=== PATIENT | female | born 1985 | race Caucasian/White ===

== ENCOUNTER 2017-10-05 14:30 | Inpatient (IN) | payer SELFPAY ==
[2017-10-05] MEDS ORDERED: FENTANYL CITR 100 MCG/2 ML ONE (15:38)
[2017-10-05] MEDS ORDERED: ONDANSETRON 4 MG/2 ML VIAL ONE (15:38)
[2017-10-05 15:47] LABS: Absolute Lymphocytes (CBC) 1.6 K/uL (0.7-4.9); Absolute Monocytes 0.6 K/uL (0.1-1.3); Absolute Neutrophil 14.8 K/uL (1.8-8.0); Basophils % 0.3 % (0-1.3); Eosinophils % 0.3 % (0-4.4); Hematocrit 34.4 % (36.0-45.0); Lymphocytes % 9.2 % (15.3-44.8); MCV 92.4 fL (80-100); MPV 8.9 fL (7.6-11.3); Monocytes % 3.6 % (3.3-12.3); RBC Red Blood Cell Count 3.72 M/uL (3.86-4.86)
[2017-10-05 16:31] LABS: Platelet Estimate ADEQ; Urine White Blood Cell Casts OK
[2017-10-05 16:32] LABS: Blood Morphology Comment NOT SEEN (NOT SEEN)
[2017-10-05 16:33] LABS: Albumin 2.9 g/dL (3.4-5.0); Bilirubin Direct 0.2 mg/dL (0-0.2); Bilirubin Total 0.6 mg/dL (0.2-1.0); Potassium 3.5 mmol/L (3.5-5.1); Protein, Total 6.8 g/dL (6.4-8.2)
[2017-10-05] MEDS ORDERED: NA CHLORIDE 0.9% 1,000 ML ONE ×2 (16:46→18:27)
[2017-10-05] MEDS ORDERED: Magnesium Sulfate 2gm IVPB 4 G/100 ML BAG IV ONE (16:57)
[2017-10-05] MEDS ORDERED: LIDOCAINE 1% W/EPI 1:100,000 MDV 50 ML VIAL ONE (17:06)
[2017-10-05 17:26] LABS: Urine Blood 2+ (NEG); Urine Glucose NEGATIVE (NEG); Urine Protein 2+ (NEG); Urine pH 5.5 (5.0-7.0)
[2017-10-05 17:27] LABS: Urine Appearance CLEAR; Urine Bilirubin NEGATIVE (NEG); Urine Blood 2+ (NEG); Urine Color DK YELLOW; Urine Glucose NEGATIVE (NEG); Urine Protein 2+ (NEG); Urine Specific Gravity 1.025 (1.005-1.030); Urine Urobilinogen 0.2 mg/dL (0.2-1.0); Urine pH 5.5 (5.0-7.0)
[2017-10-05 17:28] LABS: Urine Microscopic Reflex ORDER UMIC
[2017-10-05] MEDS ORDERED: LABETALOL 20 MG/4ML SYRINGE IV ONE (17:31)
[2017-10-05] MEDS ORDERED: Magnesium Sulfate 2gm IVPB 2 G/50 ML BAG IV ONE (17:32)
[2017-10-05 17:35] LABS: Urine Bacteria <20 /HPF (<20); Urine Culture Reflex Order NOT NEEDED; Urine Mucus 1+ /HPF (NONE SEEN)
[2017-10-05 17:41] LABS: Barbiturates NEGATIVE (NEGATIVE); Benzodiazepines NEGATIVE (NEGATIVE); Cocaine NEGATIVE (NEGATIVE); METHAMPHETAM NEGATIVE (NEGATIVE); Methadone NEGATIVE (NEGATIVE); Opiates NEGATIVE (NEGATIVE); Phencyclidine NEGATIVE (NEGATIVE); THC Cannibis NEGATIVE (NEGATIVE)
--- NOTE | 2017-10-05 17:45 | ER ---
Nurse's Notes [facility] Name: Donna Carlos Age: 31 yrs Sex: Female : 1985 Arrival Date: 10/05/2017 Time: 14:34 Bed 26 Private MD: None, None Diagnosis: Vaginal Delivery Presentation: 10/05 15:11 Presenting complaint: Patient states: Low back pain 10/10 and vaginal bleeding x 2 hb hours. Transition of care: patient was not received from another setting of care. Onset of symptoms was October 05, 2017. Risk Assessment: Do you want to hurt yourself or someone else? Patient reports no desire to harm self or others. Care prior to arrival: None. 15:11 Method Of Arrival: Ambulatory hb 15:11 Acuity: ALICIA 3 hb 15:42 Initial Sepsis Screen: Does the patient meet any 2 criteria? No. Patient's initial rv sepsis screen is negative. Does the patient have a suspected source of infection? No. Patient's initial sepsis screen is negative. Triage Assessment: 15:12 General: Appears in no apparent distress. uncomfortable, Behavior is calm, cooperative. hb Neuro: Level of Consciousness is awake, alert, obeys commands, Oriented to person, place, time, situation. Cardiovascular: Capillary refill < 3 seconds Patient's skin is warm and dry. Respiratory: Airway is patent Trachea midline Respiratory effort is even, unlabored, Respiratory pattern is regular, symmetrical. 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 - Social history:: Smoking status: Patient/guardian denies using tobacco. - Ebola Screening: : No symptoms or risks identified at this time. Screenin:12 Abuse screen: Denies threats or abuse. Denies injuries from another. Nutritional hb screening: No deficits noted. Tuberculosis screening: No symptoms or risk factors identified. Fall Risk None identified. Assessment: 15:20 General: Appears in no apparent distress. uncomfortable, Behavior is cooperative, rv crying. 15:20 Pain: Complains of pain in abdomen Pain currently is 10 out of 10 on a pain scale. rv Neuro: Level of Consciousness is awake, alert, obeys commands, Oriented to person, place, time, situation. Cardiovascular: Capillary refill < 3 seconds. Respiratory: Airway is compromised. GI: Abdomen is round non-distended. : Reports cramping, vaginal bleeding that is heavy flow. 15:40 Reassessment: Reassessment: ASKED PATIENT TO PROVIDE URINE SAMPLE BUT PATIENT UNABLE TO rv GIVE AFTER GOING TO THE RESTROOM. 15:42 EENT: No signs and/or symptoms were reported regarding the EENT system. Derm: Skin is rv intact. 16:32 Reassessment: US at bedside. hb 16:35 Reassessment: Ning العراقي and Dr. Alexandre at bedside for eminent delivery. hb 16:51 Reassessment: baby to L\T\D with MILLI Coreas. hb 16:54 Reassessment: Dr. Jha at bedside. Reassessment:. hb 17:06 Reassessment: labs collected, placenta sent to outside lab with MILLI Pearce. hb 17:45 Reassessment: Pt assisted with vaginal clean up after delivery and given pad and sv underwear to put on. Family at the bedside. 17:51 Reassessment: BABY GIRL OUT AT 1645 10/05/[address] ALEXANDRE WITH [facility]. CARE rv DONE BY D NURSE. BABY TRANSPORTED TO [facility]. DR JHA CAME AND DELIVERED THE PLACENTA AT 1657 10/05/17. 18:21 Reassessment: Pt transported to L\T\D with Ramses MORLEY and family. hb Vital Signs: 15:11 BP 172 / 94; Pulse 73; Resp 16; Temp 98; Pulse Ox 100% on R/A; Pain 10/10; hb 16:20 BP 177 / 83; Pulse 68; Pulse Ox 98% on R/A; rv 16:30 BP 173 / 137; Pulse 97; Pulse Ox 99% ; rv 16:50 BP 161 / 108; Pulse 88; Pulse Ox 98% on R/A; rv 17:00 BP 155 / 98; Pulse 91; Pulse Ox 100% on R/A; rv 17:14 BP 170 / 102; Pulse 100; Pulse Ox 100% on R/A; rv 17:20 BP 161 / 94; Pulse 103; Pulse Ox 100% on R/A; rv 17:30 BP 142 / 88; Pulse 92; Pulse Ox 97% on R/A; rv 17:47 BP 122 / 99; Pulse 88; Pulse Ox 97% on R/A; rv 18:00 BP 137 / 95; Pulse 89; Pulse Ox 99% on R/A; rv ED Course: 14:34 Patient arrived in ED. sb2 14:35 None, None is Private Physician. sb2 15:07 [facility] jmm 15:07 Chace Alexandre MD is Attending Physician. jmm 15:11 Triage completed. hb 15:11 Arm band placed on right wrist. hb 15:30 Inserted saline lock: 20 gauge in right antecubital area, using aseptic technique. rv 15:42 Patient has correct armband on for positive identification. Placed in gown. Bed in low rv position. Call light in reach. Side rails up X 1. Adult w/ patient. Pulse ox on. NIBP on. 16:27 Ultrasound completed. Other: pt began giving during exam, ning العراقي notified. sg3 16:27 OB Limited In Process Unspecified. sg3 17:03 Assist provider with laceration repair on meatus, vaginal opening and perineum using geeta sutures. Set up tray. Performed by Yoli Jha MD Patient tolerated well. 17:05 Straight cath inserted, using sterile technique, 16 Fr. Specimen obtained. done by Dr geeta Jha Returned clear yellow urine. Patient tolerated well. 17:43 Yoli Jha MD is Hospitalizing Provider. jmm 17:51 LABOR AND DELIVERY OF THE BABY. rv 18:45 Patient admitted, IV remains in place. intact. rv Administered Medications: 15:39 Drug: fentaNYL (PF) 50 mcg Route: IVP; Site: right antecubital; rv 18:16 Follow up: Response: No adverse reaction; Pain is unchanged, physician notified rv 15:39 Drug: Zofran 4 mg Route: IVP; Site: right antecubital; rv 16:33 Follow up: Response: No adverse reaction rv 16:33 Follow up: Response: No adverse reaction rv 17:10 Drug: Magnesium Sulfate 4 grams Route: IVPB; Infused Over: 20 mins; Site: right rv antecubital; 18:16 Follow up: Response: No adverse reaction; IV Status: Completed infusion rv 17:38 Drug: Labetalol 20 mg Route: IVP; Infused Over: 2 mins; Site: right antecubital; sv 18:08 Follow up: Response: No adverse reaction rv Outcome: 17:44 Decision to Hospitalize by Provider. svetlana 18:45 Admitted to L \T\ D, accompanied by nurse, accompanied by tech, via stretcher, room 274, rv with chart, Report called to TREY MORLEY 18:45 Condition: stable 18:45 Instructed on the need for admit. 18:46 Patient left the ED. hb Signatures: Dispatcher [employer] Landy Guzmán, RN RN Ning Hoffman PA PA jmm Baxter, Heather, RN RN Ramya Cabral sg3 Radha Trejo sb2 Александр Espinal, RN RN rv Corrections: (The following items were deleted from the chart) 10/06 14:48 10/05 17:46 Ultrasound completed. Other: pt began giving during exam, ning العراقي sg3 notified. sg3 10/06 14:48 10/05 17:51 In radiology for OB Limited. LYDIA sg3
--- NOTE | 2017-10-05 17:45 | EDPHYS ---
Physician Documentation [facility] Name: Donna Carlos Age: 31 yrs Sex: Female : 1985 Arrival Date: 10/05/2017 Time: 14:34 Bed 26 Private MD: None, None ED Physician Chace Alexandre HPI: 10/05 15:27 This 31 yrs old Female presents to ER via Ambulatory with complaints of jmm Vaginal Bleeding, Abdominal Pain. 15:27 The patient presents with pelvic pain, vaginal bleeding that is. Onset: The jmm symptoms/episode began/occurred acutely, just prior to arrival. Associated signs and symptoms: Pertinent positives: cramping, vaginal bleeding, Pertinent negatives: fever. This is a 31 year old female with no chronic medical conditions that presents to the ED with heavy vaginal bleeding and pelvic cramping. Patient denies vomiting, diarrhea, fever, dysuria, or discharge. . 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 - Social history:: Smoking status: Patient/guardian denies using tobacco. - Ebola Screening: : No symptoms or risks identified at this time. ROS: 15:27 Constitutional: Negative for fever, chills, and weight loss, Cardiovascular: Negative jmm for chest pain, palpitations, and edema, Respiratory: Negative for shortness of breath, cough, wheezing, and pleuritic chest pain, Abdomen/GI: Negative for abdominal pain, nausea, vomiting, diarrhea, and constipation. 15:27 : Positive for vaginal bleeding. 15:27 All other systems are negative. Exam: 15:27 Head/Face: atraumatic. Chest/axilla: Normal chest wall appearance and motion. jmm Cardiovascular: Regular rate and rhythm. No edema appreciated Respiratory: Normal respirations, no respiratory distress appreciated Abdomen/GI: Non distended, soft 15:27 Constitutional: The patient appears in no acute distress, alert, awake. 15:27 Abdomen/GI: Inspection: abdomen appears normal, Bowel sounds: normal, Palpation: abdomen is soft and non-tender. 15:27 Musculoskeletal/extremity: ROM: intact in all extremities. 15:27 Skin: Appearance: Color: normal in color. 15:27 Neuro: Orientation: is normal, Mentation: is normal, Memory: is normal. 15:27 Psych: Behavior/mood is pleasant, cooperative. Vital Signs: 15:11 BP 172 / 94; Pulse 73; Resp 16; Temp 98; Pulse Ox 100% on R/A; Pain 10/10; hb 16:20 BP 177 / 83; Pulse 68; Pulse Ox 98% on R/A; rv 16:30 BP 173 / 137; Pulse 97; Pulse Ox 99% ; rv 16:50 BP 161 / 108; Pulse 88; Pulse Ox 98% on R/A; rv 17:00 BP 155 / 98; Pulse 91; Pulse Ox 100% on R/A; rv 17:14 BP 170 / 102; Pulse 100; Pulse Ox 100% on R/A; rv 17:20 BP 161 / 94; Pulse 103; Pulse Ox 100% on R/A; rv 17:30 BP 142 / 88; Pulse 92; Pulse Ox 97% on R/A; rv 17:47 BP 122 / 99; Pulse 88; Pulse Ox 97% on R/A; rv 18:00 BP 137 / 95; Pulse 89; Pulse Ox 99% on R/A; rv Procedures: 17:39 Delivery of : Patient placed in dorsal lithotomy position. Imminent delivery was rn expected. position was vertex, Station is Presenting part visible on exam. Meconium was a mild amount. Bleeding was minimal. Nuchal cord was not present. Baby delivered at 16:45 Baby delivered by myself. Cord cut and clamped. Mother doing well. in warmer. Infant to NICU. Suctioned infant's naso/oropharynx with bulb syringe. score at 1 minute was 9. score at 10 minutes was 9. MDM: 15:25 Patient medically screened. [facility] 16:55 Data reviewed: vital signs, nurses notes. ED course: While in the ED the patient had a jm spontaneous vaginal delivery. Dr. Alexandre and L \T\ D nurses present. Dr. Olmstead was notified and visited patient after delivery. Dr. Burns notified. . 17:41 ED course: Called to bedside for imminent baby delivery, unknown dates, patient reports rn mild periods over last 3 months, no known , reports last normal period was approx 3 months ago, presenting part is vertex, hair visible, having 2 min contractions, prepared sterile drapes and baby delivered by myself, Dr. Alexandre, baby with very small amount of meconium, suctioned prior to first cry, pinked up quickly, dried, warmed, and transferred to nursery, mild tachypnea and O2 93%, transfer organized to [facility]. NO intubation required. Dr. Olmstead arrived shortly after delivery and delivered placenta/sutured mother. Infant passed onto Dr. Burns for completion of transfer. . 10/05 15:25 Order name: Amylase, Serum; Complete Time: 17:25 [facility] 10/05 15:25 Order name: Basic Metabolic Panel; Complete Time: 17:25 [facility] 10/05 15:25 Order name: CBC with Diff; Complete Time: 17:25 [facility] 10/05 15:25 Order name: Creatinine for Radiology; Complete Time: 16:06 [facility] 10/05 15:25 Order name: Hepatic Function; Complete Time: 17:25 [facility] 10/05 15:25 Order name: Lipase; Complete Time: 17:25 [facility] 10/05 15:25 Order name: Urine Microscopic Only [facility] 10/05 15:26 Order name: Abo/rh Typing; Complete Time: 17:25 [facility] 10/05 15:26 Order name: Quantitative Hcg; Complete Time: 17:25 [facility] 10/05 16:26 Order name: ABO/RH no charge; Complete Time: 17:25 [facility] 10/05 16:32 Order name: CBC Smear Scan; Complete Time: 17:25 [facility] 10/05 17:10 Order name: T\T\S 10/05 17:10 Order name: Uric Acid; Complete Time: 18:18 10/05 17:10 Order name: Comprehensive Metabolic Panel; Complete Time: 18:18 10/05 17:10 Order name: Rpr 10/05 17:10 Order name: Hepatitis B Surface Antibody [facility] 10/05 17:10 Order name: HIV (1 [facility] 10/05 17:10 Order name: Rubella Screen [facility] 10/05 17:14 Order name: Urinalysis; Complete Time: 18:18 10/05 17:14 Order name: Urine Drug Screen; Complete Time: 18:18 10/05 17:23 Order name: Urine Dipstick--Ancillary (enter results); Complete Time: 17:26 10/05 17:23 Order name: Urine --Ancillary (enter results); Complete Time: 17:26 10/05 17:26 Order name: Cord blood workup [facility] 10/05 17:29 Order name: Urine Microscopic Only; Complete Time: 18:18 [facility] 10/05 17:50 Order name: OB Limited; Complete Time: 18:18 [facility] 10/05 15:25 Order name: Urine Test (obtain specimen); Complete Time: 18:16 [facility] 15:25 Order name: IV Saline Lock; Complete Time: 15:39 [facility] 10/05 15:25 Order name: Labs collected and sent; Complete Time: 15:39 [facility] 15:25 Order name: Urine Dipstick-Ancillary (obtain specimen); Complete Time: 18:16 [facility] Administered Medications: 15:39 Drug: fentaNYL (PF) 50 mcg Route: IVP; Site: right antecubital; rv 18:16 Follow up: Response: No adverse reaction; Pain is unchanged, physician notified rv 15:39 Drug: Zofran 4 mg Route: IVP; Site: right antecubital; rv 16:33 Follow up: Response: No adverse reaction rv 16:33 Follow up: Response: No adverse reaction rv 17:10 Drug: Magnesium Sulfate 4 grams Route: IVPB; Infused Over: 20 mins; Site: right rv antecubital; 18:16 Follow up: Response: No adverse reaction; IV Status: Completed infusion rv 17:38 Drug: Labetalol 20 mg Route: IVP; Infused Over: 2 mins; Site: right antecubital; sv 18:08 Follow up: Response: No adverse reaction rv Disposition: 19:02 Co-signature as Attending Physician, Chace Alexandre MD. rn Disposition: 10/05/17 17:44 Hospitalization ordered by Yoli Olmstead for Observation. Preliminary diagnosis is Vaginal Delivery. - [facility]. - Status is Observation. hb - Condition is Stable. - Problem is new. - Symptoms are unchanged. UTI on Admission? No Signatures: Dispatcher [employer] [facility] Landy Mills RN RN sv Mickail, Joel, PA PA Chace Clemons MD MD rn Baxter Annamarie, RN RN Harriet Gloria Александр Espinal, RN RN rv Corrections: (The following items were deleted from the chart) 17:50 15:27 Pelvis Complete+US.RAD.BRZ ordered. EDMS EDMS 18:20 17:44 Hospitalization Ordered by Yoli Olmstead MD for Observation. Preliminary diagnosis eb is Vaginal Delivery. Bed requested for [facility]. Status is Observation. Condition is Stable. Problem is new. Symptoms are unchanged. UTI on Admission? No. jmm 18:46 18:20 10/05/2017 17:44 Hospitalization Ordered by Yoli Olmstead MD for Observation. Preliminary diagnosis is Vaginal Delivery. Bed requested for [facility]. Status is Observation. Condition is Stable. Problem is new. Symptoms are unchanged. UTI on Admission? No. eb
[2017-10-05 17:51] LABS: RPR Titer ND
--- NOTE | 2017-10-05 18:00 | P.HP ---
Certification for Inpatient Patient admitted to: Inpatient With expected LOS: >2 Midnights Patient will require the following post-hospital care: None Practitioner: I am a practitioner with admitting privileges, knowledge of patient current condition, hospital course, and medical plan of care. Services: Services provided to patient in accordance with Admission requirements found in Title 42 Section 412.3 of the Code of Federal Regulations Patient History Date of Service: 10/05/17 Reason for admission: Presented to ER with abdominal pain History of Present Illness: 31 y.o. G1 who presented to ED today due to intense pelvic pain. She states the pain started at round 10:30 this morning but increased around noon until it became unbearable. She also started having vaginal bleeding and low back pain. When she presented to ED, it continued to worsen. US was done on admission showing an IUP. 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 She denies even suspecting as she also denies any signs or symptoms and reports weight loss. She was not taking control. She denies prescription medications, but took NSAIDs regularly. She has a h/o asthma and reports moderate intake of alcohol (4-5 days/week) and denies tobacco or drug use. Allergies aspirin Adverse Reaction (Verified 10/05/17 18:03) Hives codeine Adverse Reaction (Verified 10/05/17 18:03) Hives Home medications list reviewed: Yes - Past Medical/Surgical History -: Asthma -: Denies - Social History Smoking Status: Never smoker Alcohol use: Yes CD- Drugs: No Caffeine use: Yes Place of Residence: Home Review of Systems 10-point ROS is otherwise unremarkable Physical Examination - Physical Exam General: Alert, Moderate distress HEENT: Atraumatic, Normocephalic Respiratory: Other (Rapid breathing but not labored) Cardiovascular: Normal pulses Musculoskeletal: No swelling, No tenderness Integumentary: No rashes, No breakdown Neurological: Normal speech, Normal strength at 5/5 x4 extr - Studies Laboratory Data (last 24 hrs) 10/05/17 15:20: Creatinine 0.80 10/05/17 15:20: WBC 17.1 H, Hgb 11.9 L, Hct 34.4 L, Plt Count 276 10/05/17 15:20: Sodium 140, Potassium 3.5, BUN 12, Creatinine 0.80, Glucose 100 , Total Bilirubin 0.6, AST 23, ALT 29, Alkaline Phosphatase 134 H, Amylase 26, Lipase 124 Female Exam - Female Pelvic Vagina: Normal, Other (B/L labial tears) Uterus: Non-tender, Soft Assessment and Plan - Problems (Diagnosis) (1) with gestation of unknown duration Current Visit: Yes Status: Resolved Plan: Delivered in ER by ED attending. Peds called in and NICU transport team en route. Approximately 30-32 week per ginner helper assessment. Ob labs and HIV ordered. (2) Pre-eclampsia affecting childbirth Current Visit: Yes Status: Acute Plan: Severe range blood pressures (170s/120s) noted on my arrival. Pt denies MORAN, changes in vision, CP, RUQ pain, or difficulty breathing. HELLP labs ordered and pending. Four gram magnesium bolus given and continuous infusion running at 2g/hr. Severe range blood pressure treated with 20 mg IV labetalol x1 with appropriate response, now in mild range. Plan to continue magnesium sulfate for seizure prophylaxis for 12-24 h and follow serial labs. Will insert ramirez catheter. Allow ice chips and popsicles only until medication is discontinued. Pt aware and is agreeable. Bed rest during therapy. (3) Asthma Current Visit: Yes Status: Acute Plan: Well controlled per patient. Albuteol inh prn, to have at bedside. - Advance Directives Does patient have a Living Will: No Does patient have a Durable POA for Healthcare: No
[2017-10-05 18:16] LABS: Bilirubin Total 0.5 mg/dL (0.2-1.0); Potassium 3.9 mmol/L (3.5-5.1); Uric Acid 8.2 mg/dL (2.6-6.0)
[2017-10-05] MEDS ORDERED: METOCLOPRAMIDE 10 MG/2mL INJ IV PRN (18:16)
[2017-10-05] MEDS ORDERED: ONDANSETRON 4 MG/2 ML VIAL IV PRN (18:16)
[2017-10-05] MEDS ORDERED: ALBUTEROL INHALER 60 PUFF/8 GM IH PRN (18:16)
--- NOTE | 2017-10-05 18:16 | RAD REPORT ---
EXAM DESCRIPTION: US - OB Limited - 10/05/2017 5:51 pm CLINICAL HISTORY: pelvic pain, vaginal bleeding Evaluate heart rate COMPARISON: None FINDINGS: A very limited study was requested to evaluate heart rate only. heart rate 138 BPM was seen by the medical apparatus model maker.
[2017-10-05] MEDS ORDERED: MAGNESIUM SULF/STERILE WATER 1,000 ML IV SCH (19:00)
[2017-10-05 19:10] VITALS: BMI 34.0
[2017-10-05 22:39] LABS: RPR (Rapid Plasma Reagin) NON-REACT (NON-REACT)
[2017-10-06 00:38] LABS: Hematocrit 27.8 % (36.0-45.0); MCV 92.7 fL (80-100); MPV 8.5 fL (7.6-11.3)
[2017-10-06 00:57] LABS: ALT/SGPT 21 U/L (12-78); AST/SGOT 19 U/L (15-37); Albumin 2.4 g/dL (3.4-5.0); Alkaline Phosphatase 108 U/L (45-117); BUN Blood Urea Nitrogen 9 mg/dL (7-18); Bicarbonate 21 mmol/L (21-32); Bilirubin Total 0.5 mg/dL (0.2-1.0); Glucose Level 86 mg/dL (74-106); Protein, Total 5.8 g/dL (6.4-8.2); Sodium Level 139 mmol/L (136-145)
[2017-10-06] MEDS ORDERED: NA CHLORIDE 0.9% 1,000 ML ONE ×2 (04:42→18:16)
[2017-10-06 07:12] LABS: MCH 31.7 pg (27.0-35.0); MCV 92.3 fL (80-100); MPV 8.7 fL (7.6-11.3); RBC Red Blood Cell Count 2.92 M/uL (3.86-4.86)
[2017-10-06 07:18] VITALS: O2SAT 100
[2017-10-06 07:22] LABS: ALT/SGPT 21 U/L (12-78); AST/SGOT 19 U/L (15-37); Albumin 2.3 g/dL (3.4-5.0); Alkaline Phosphatase 97 U/L (45-117); BUN Blood Urea Nitrogen 7 mg/dL (7-18); Bicarbonate 23 mmol/L (21-32); Bilirubin Total 0.5 mg/dL (0.2-1.0); Glucose Level 82 mg/dL (74-106); Potassium 4.1 mmol/L (3.5-5.1); Protein, Total 5.5 g/dL (6.4-8.2); Sodium Level 137 mmol/L (136-145)
[2017-10-06] MEDS ORDERED: TRAMADOL HCL 50 MG TAB PO PRN (10:43)
--- NOTE | 2017-10-06 10:45 | P.OP ---
Preoperative diagnosis: IUP of unknown gestational age Postoperative diagnosis: Same with precipitous vaginal delivery Primary procedure: Delivery of placenta Secondary procedure: Repair of vaginal lacerations Anesthesia: Local with epinephrine Estimated blood loss: 200 cc Specimen: Placenta Findings: See operative report Operative Technique: PREOPERATIVE DIAGNOSIS:Precipitous , undelivered placenta PROCEDURE PERFORMED:Delivery of placenta, repairs of vaginal laceration HISTORY OF PRESENT ILLNESS:The patient is a 31-year-old female who is a G-1, P1 with a unknown EDC as she denied knowledge of . Ob labs and HIV ordered. PROCEDURE DETAILS:The patient was admitted to ED and delivered precipitously by ED attending. I was called in to assess and for delivery of placenta. On my arrival, patient was laying on the stretcher. FOB at bedside. She was tearful, she was shaking and appeared to be anxious but was cooperative. Baby had been taken to another room for further assessment due to suspected prematurity. Placenta was still undelivered. Gentle traction was applied and the placenta delivered easily. It appeared to be intact. Examination of perineum revealed bilateral labial tears and a susan-urethral laceration on the right. 5 cc of local with epinephrine was injected. Anesthesia was confirmed. Next, 4 -0 chromic was used to repair the bilateral labial tears in a continuous running , un-locked fashion. The urethra was cleansed with Betadine and a red rubber was placed. Approximately 100 mL of clear urine noted. The Strait catheter was left in place during repair of right susan-urethra laceration which was done carefully using the same suture. Bleeding was minimal and hemostasis was achieved. The catheter was removed. Patient tolerated well the procedure well and there were no complications. Drain(s): Urinary catheter Fluids & blood products: mIVF Transferred to: Recovery Room Condition: Good
--- NOTE | 2017-10-06 10:51 | P.PN ---
Subjective Date of Service: 10/06/17 Chief Complaint: S/p Subjective: Improving (FOB is present in the room. Reports mild pain in pelvic area. Bleeding is described as normal. She is pumping. Reports baby is doing well as she was in touch with nursing at [facility] about baby status), Doing well Review of Systems 10-point ROS is otherwise unremarkable Physical Examination - Vital Signs Temperature: 97.0 F Blood Pressure: 134/70 Pulse: 83 Respirations: 18 Pulse Ox (%): 100 - Physical Exam General: Alert, In no apparent distress, Oriented x3 HEENT: Atraumatic, Normocephalic Respiratory: Clear to auscultation bilaterally Cardiovascular: Normal pulses, Regular rate/rhythm, Normal S1 S2 Gastrointestinal: No tenderness, Other (Obese, soft, uterus is firm and below umbilicus) Musculoskeletal: No swelling, No tenderness Integumentary: No rashes, No breakdown Neurological: Normal speech, Normal strength at 5/5 x4 extr - Studies Laboratory Data (last 24 hrs) 10/05/17 17:22: Sodium 141, Potassium 3.9, BUN 13, Creatinine 0.80, Glucose 117 H, Uric Acid 8.2 H, Total Bilirubin 0.5, AST 20, ALT 29, Alkaline Phosphatase 144 H 10/05/17 15:20: Creatinine 0.80 10/05/17 15:20: WBC 17.1 H, Hgb 11.9 L, Hct 34.4 L, Plt Count 276 10/05/17 15:20: Sodium 140, Potassium 3.5, BUN 12, Creatinine 0.80, Glucose 100 , Total Bilirubin 0.6, AST 23, ALT 29, Alkaline Phosphatase 134 H, Amylase 26, Lipase 124 Assessment And Plan - Current Problems (Diagnosis) (1) with gestation of unknown duration Current Visit: Yes Status: Resolved Plan: (2) Pre-eclampsia affecting childbirth Current Visit: Yes Status: Acute Plan: Blood pressures are normal to mild ranges. Pt denies MORAN, changes in vision, KARRI , chest pain. UOP is adequate the last 3 hours. Will d/c magnesium now and advance diet. Continue to observe until this evening. Pt would like to be discharged as soon as possible to see baby. However, she understands need to further monitor once magnesium is discontinued and agrees. She denies further questions. (3) Asthma Current Visit: Yes Status: Acute Plan: Well controlled. Albuteol inh prn, to have at bedside.
--- NOTE | 2017-10-06 11:17 | P.PN ---
Date of Service: 10/06/17 EKG ordered due to severe range pressures. Follow up results
--- NOTE | 2017-10-06 15:14 | EKG ---
Test Date: 2017-10-06 Test Time: 13:44:43 Labor Law Professor: AYAKA MEASUREMENT RESULTS: Intervals: Rate: 90 MN: 116 QRSD: 78 QT: 382 QTc: 467 [place]: P: 34 MN: 116 QRS: 6 T: 12 INTERPRETIVE STATEMENTS: Normal sinus rhythm Normal ECG No previous ECG available for comparison Electronically Signed On 10-06-17 15:14:17 CDT by Aden Jordan
[2017-10-06] MEDS ORDERED: Tdap (Diph,Pertuss(Acell),Tet Vac) 0.5 ML SYR IMVAC ONE ×2 (15:37→15:46)
--- NOTE | 2017-10-06 18:14 | P.PN ---
Date of Service: 10/06/17 RN called to say patient is requesting to go home so she can visit her baby. However, she is having blood tinged urine with only slight improvement since this morning. I suspect traumatic ramirez catheterization vs vaginal lacerations near urethral orifice that occurred at delivery. VB described as light. Improvement or resolution anticipated for traumatic catheter. Will resume IVF and give lasix. Monitor overnight; consult urology if no improvement.
[2017-10-06 18:34] LABS: MCH 32.5 pg (27.0-35.0); MCV 92.5 fL (80-100); MPV 8.1 fL (7.6-11.3); RBC Red Blood Cell Count 3.03 M/uL (3.86-4.86)
[2017-10-06 18:45] LABS: Potassium 3.6 mmol/L (3.5-5.1)
[2017-10-06] MEDS ORDERED: NA CHLORIDE 0.9% 500 ML IV ONE (19:00)
[2017-10-06] MEDS ORDERED: FUROSEMIDE 20 MG/ 2ML VIAL IV ONE (19:00)
[2017-10-06] MEDS: NA CHLORIDE 0.9% 1,000 ML IV SCH (23:00)
[2017-10-06] MEDS: ACETAMINOPHEN 500 MG TAB PO PRN ×2 (23:54)
[2017-10-07] MEDS: NA CHLORIDE 0.9% 1,000 ML IV SCH (07:30)
[2017-10-07 07:36] VITALS: BP 150/86; TEMP 98.1
--- NOTE | 2017-10-07 10:57 | P.DS ---
Admission Date: 10/05/17 Discharge Date: 10/07/17 Disposition: ROUTINE DISCHARGE Discharge Condition: GOOD Reason for Admission: S/p - Problems (1) with gestation of unknown duration Onset Date: 10/07/17 Current Visit: Yes Status: Resolved (2) Pre-eclampsia affecting childbirth Onset Date: 10/07/17 Current Visit: Yes Status: Acute (3) Asthma Onset Date: 10/07/17 Current Visit: Yes Status: Acute Brief History of Present Illness: 31 y.o. G1 who presented to ED today due to intense pelvic pain. She states the pain started at round 10:30 this morning but increased around noon until it became unbearable. She also started having vaginal bleeding and low back pain. When she presented to ED, it continued to worsen. US was done on admission showing an IUP. 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 She denies even suspecting as she also denies any signs or symptoms and reports weight loss. She was not taking control. She denies prescription medications, but took NSAIDs regularly. She has a h/o asthma and reports moderate intake of alcohol (4-5 days/week) and denies tobacco or drug use. Hospital Course: Pt was delivered in ED by ER attending after presenting for abdominal pain. Baby was transferred to [facility] for prematurity and no care. She was treated for severe preeclampsia with magnesium sulfate and was observed for BPs and development of hematuria. She denies denies pain and urine is merchandise examiner in color now improved from dark red to teresa today. Vitals are stable in mild ranges, she is afebrile and H/H is improved. She would like to be discharged to go see infant. She is pumping. Will d/c home today Vital Signs/Physical Exam: Temp Pulse Resp BP Pulse Ox 98.1 F 76 18 150/86 H 100 10/07/17 07:27 10/07/17 07:27 10/07/17 07:27 10/07/17 07:27 10/06/17 19:30 General: Alert, In no apparent distress, Oriented x3 Respiratory: Other (Normal effort) Cardiovascular: Normal pulses Gastrointestinal: Soft and benign, Non-distended, Other (obese, uterus firm and below umbilicus) Musculoskeletal: No swelling, No erythema, No tenderness Integumentary: No rashes, No breakdown External genitalia: Other (Labial tears healing, sutures in place. Right labia with loose suture material, removed. No active bleeding or signs of infection. Urethral orifice appears normal and free of suture) Laboratory Data at Discharge: WBC 10.8 K/uL (4.3-10.9) D 10/06/17 18:23 Hgb 9.8 g/dL (12.0-15.0) L 10/06/17 18:23 Hct 28.0 % (36.0-45.0) L 10/06/17 18:23 Plt Count 271 K/uL (152-406) 10/06/17 18:23 Sodium 139 mmol/L (136-145) 10/06/17 18:23 Potassium 3.6 mmol/L (3.5-5.1) 10/06/17 18:23 BUN 7 mg/dL (7-18) 10/06/17 18:23 Creatinine 0.80 mg/dL (0.55-1.3) 10/06/17 18:23 Glucose 105 mg/dL (74-106) 10/06/17 18:23 Uric Acid 8.2 mg/dL (2.6-6.0) H 10/05/17 17:22 Total Bilirubin 0.5 mg/dL (0.2-1.0) 10/06/17 06:56 AST 19 U/L (15-37) 10/06/17 06:56 ALT 21 U/L (12-78) 10/06/17 06:56 Alkaline Phosphatase 97 U/L (45-117) 10/06/17 06:56 Amylase 26 U/L (25-115) 10/05/17 15:20 Lipase 124 U/L (73-393) 10/05/17 15:20 Home Medications: Lactobacillus Acidophilus [Acidophilus] 1 tab PO DAILY 10/05/17 Phenazopyridine HCl [Azo Urinary Pain Relief] 1 tab PO DAILY 10/05/17 Patient Discharge Instructions: See physician in one 7-10 days for follow up. Complete pelvic rest advised. Notify doctor immediately of pain, fever/chills, other signs of infection, or heavy bleeding. Diet: Regular Activity: Ad justin Followup: Yoli Olmstead MD [ACTIVE - CAN ADMIT] - (Follow up care with Dr. Olmstead in 4-6 weeks. [phone])
[2017-10-09 12:32] LABS: HIV 1/2 Antibody Diff Not indicated.; HIV AG/AB 4TH GEN Non-reactive (Non-reactive)
== END 2017-10-07 11:30 | disposition home or self-care (01) | DRG 775 ==
LOC: ER 14:30 → ERHOLD 17:41 → OBSVTOIN 17:41 → 2ND-WC 18:33
PROVIDERS: ADMIT Obstetrics & Gynecology; ATTEND Obstetrics & Gynecology
PROC: 10E0XZZ Delivery of Products of Conception, External Approach (ICD-10-PCS; principal; 2017-10-05)
PROC: 0HQ9XZZ Repair Perineum Skin, External Approach (ICD-10-PCS; 2017-10-05)
PROC: 0UQMXZZ Repair Vulva, External Approach (ICD-10-PCS; 2017-10-05)
DX: O60.14X0 Preterm labor third trimester with preterm delivery third trimester, not applicable or unspecified (principal); O62.3 Precipitate labor; O77.0 Labor and delivery complicated by meconium in amniotic fluid; O70.0 First degree perineal laceration during delivery; O14.14 Severe pre-eclampsia complicating childbirth; J45.909 Unspecified asthma, uncomplicated; O99.52 Diseases of the respiratory system complicating childbirth; O71.82 Other specified trauma to perineum and vulva; Z3A.00 Weeks of gestation of pregnancy not specified; Z37.0 Single live birth; Z88.6 Allergy status to analgesic agent; Z88.5 Allergy status to narcotic agent; Z23 Encounter for immunization
CPT/HCPCS: 36415; 51702; 76815; 80048; 80053; 80076; 80307; 81003; 81015; 81025; 82150; 83690; 84550; 84702; 85025; 85027; 86592; 86706; 86762; 86850; 86900; 86901; 87389; 90715; 93005; 96365; 96375; 99285; J1940; J2405; J3010; J3475; J7030